=== PATIENT | male | born 1960 | race Caucasian/White ===

== ENCOUNTER 2016-09-09 08:33 | Inpatient (IN) | payer BC ==
[~2016-09-09] VITALS: Ht 180.3 cm; Wt 65.9 kg
[~2016-09-09 08:33] MED LIST: DEXA4TAB PO; LORA-446 PO; OXYC10TA32 PO; OXYC5TAB3 PO; ZOLP-413 PO
[2016-09-09] MEDS ORDERED: SODIUM CHLORIDE 0.9% 1,000ML IVBOLUS ONE ×2 (09:30)
[2016-09-09] MEDS ORDERED: LEVOFLOXACIN/PMX 750MG/150ML 150 ML IVPB ONE (09:30)
[2016-09-09] MEDS ORDERED: MORPHINE SULFATE 4 MG/ML, 1ML IVPush PRN (09:30)
[2016-09-09] MEDS ORDERED: ONDANSETRON 2MG/ML, 2ML IVP ONE (09:30)
[2016-09-09] MEDS ORDERED: SODIUM CHLORIDE FLUSH 10ML SYR IVF ONE (09:30)
[2016-09-09] MEDS ORDERED: MORPHINE SULFATE 4 MG/ML, 1ML ONE (09:42)
[2016-09-09] MEDS ORDERED: ONDANSETRON 2MG/ML, 2ML ONE (09:43)
[2016-09-09] MEDS ORDERED: LEVOFLOXACIN/PMX 750MG/150ML 150 ML ONE (09:43)
[2016-09-09 10:10] LABS: HEMOGLOBIN 8.3 g/dL (13.7-18.0)
[2016-09-09 10:24] LABS: BLOOD UREA NITROGEN 19 mg/dL (7-18)
[2016-09-09 10:28] LABS: IS PT STATUS REG ER OR PRE ER? YES
[2016-09-09] MEDS ORDERED: OMNIPAQUE 350 MG/ML, 100ML BOTTLE ONE (11:47)
[2016-09-09] MEDS ORDERED: SODIUM CHLORIDE 0.9%, 500ML IVBOLUS ONE (13:00)
[2016-09-09 14:04] LABS: ABG COLLECTION SITE RIGHT RADIAL; COLLATERAL CIRCULATION TESTING NORMAL
[2016-09-09] MEDS ORDERED: ONDANSETRON 2MG/ML, 2ML IVP PRN (15:00)
[2016-09-09] MEDS: LEVOFLOXACIN/PMX 750MG/150ML 150 ML IV SCH (15:00)
[2016-09-09] MEDS ORDERED: ACETAMINOPHEN 325 MG TABLET PO PRN (15:00)
[2016-09-09] MEDS: ENOXAPARIN 40 MG/0.4 ML SQ SCH (15:41)
[2016-09-09] MEDS: SODIUM CHLORIDE 0.9% 1,000 ML IV SCH (15:41)
[2016-09-09 15:43] VITALS: BP 102/69
[2016-09-09] MEDS: HYDROcodone/APAP 5/325 TABLET PO PRN (16:55)
[2016-09-09 19:34] VITALS: BP 96/65
[2016-09-09] MEDS ORDERED: DABRAFENIB HOMEMEDPO SCH (21:00)
[2016-09-09] MEDS: DABRAFENIB HOMEMEDPO SCH (21:12)
[2016-09-09] MEDS: ONDANSETRON 4 MG TABLET PO PRN (21:27)
[2016-09-09] MEDS: FAMOTIDINE 20 MG TABLET PO SCH (21:27)
[2016-09-10 01:27] VITALS: BP 124/72
[2016-09-10] MEDS: SODIUM CHLORIDE 0.9% 1,000 ML IV SCH (03:15)
[2016-09-10 03:16] VITALS: BP 102/68
[2016-09-10] MEDS: HYDROcodone/APAP 5/325 TABLET PO PRN ×4 (03:19→17:53)
[2016-09-10] MEDS: LORazepam 1MG TABLET PO PRN ×2 (05:14→21:32)
[2016-09-10 05:57] LABS: ASPARTATE AMINO TRANSFERASE 34 U/L (15-37); BLOOD UREA NITROGEN 14 mg/dL (7-18); HEMOGLOBIN 7.6 g/dL (13.7-18.0)
[2016-09-10 06:40] VITALS: BP 113/80
[2016-09-10] MEDS: FAMOTIDINE 20 MG TABLET PO SCH ×2 (08:27→22:08)
[2016-09-10] MEDS ORDERED: LACTULOSE 10 GM/15 ML UDC PO ONE (09:00)
[2016-09-10] MEDS: LEVOFLOXACIN/PMX 750MG/150ML 150 ML IV SCH (09:53)
[2016-09-10] MEDS ORDERED: ALBUTEROL SULFATE 2.5 MG/3 ML ONE (09:59)
[2016-09-10] MEDS: ALBUTEROL SULFATE 2.5 MG/3 ML NPPB SCH ×4 (10:04→22:00)
[2016-09-10] MEDS: MORPHINE SULFATE 4 MG/ML, 1ML IVPush PRN ×2 (10:54→23:44)
[2016-09-10] MEDS: ONDANSETRON 4 MG TABLET PO PRN (11:12)
[2016-09-10] MEDS: TRAMETINIB HOMEMEDPO SCH (11:38)
[2016-09-10] MEDS: DABRAFENIB HOMEMEDPO SCH ×2 (11:39→21:12)
[2016-09-10 13:39] VITALS: BP 99/67
[2016-09-10 15:37] VITALS: BP 95/69
[2016-09-10] MEDS: ENOXAPARIN 40 MG/0.4 ML SQ SCH (17:53)
[2016-09-10 18:59] VITALS: BP 98/62
[2016-09-11 02:30] VITALS: BP 124/73
[2016-09-11] MEDS: LORazepam 1MG TABLET PO PRN ×2 (04:11→17:36)
[2016-09-11 05:16] LABS: BLOOD UREA NITROGEN 10 mg/dL (7-18)
[2016-09-11 05:47] LABS: HEMOGLOBIN 7.4 g/dL (13.7-18.0)
[2016-09-11 06:25] LABS: DIFF TOTAL CELLS COUNTED 100 CELL DIFF
[2016-09-11 06:27] LABS: POLYCHROMASIA 1+; VERIFY COUNTS? YES
[2016-09-11 06:28] LABS: ANISOCYTOSIS 1+; HYPOCHROMIA 1+
[2016-09-11 06:33] LABS: SPHEROCYTES 1+
[2016-09-11] MEDS: ALBUTEROL SULFATE 2.5 MG/3 ML NPPB SCH ×5 (07:30→22:30)
[2016-09-11 08:05] VITALS: BP 111/71
[2016-09-11] MEDS: FAMOTIDINE 20 MG TABLET PO SCH ×2 (08:56→20:15)
[2016-09-11] MEDS: MORPHINE SULFATE 4 MG/ML, 1ML IVPush PRN (08:56)
[2016-09-11] MEDS: TRAMETINIB HOMEMEDPO SCH (09:00)
[2016-09-11] MEDS: DABRAFENIB HOMEMEDPO SCH ×2 (09:02→21:12)
[2016-09-11] MEDS: HYDROcodone/APAP 5/325 TABLET PO PRN ×2 (10:33→20:15)
[2016-09-11] MEDS: LEVOFLOXACIN/PMX 750MG/150ML 150 ML IV SCH (10:37)
[2016-09-11] MEDS ORDERED: BISACODYL 10 MG SUPP PR PRN (15:00)
[2016-09-11 15:03] VITALS: BP 109/67
[2016-09-11] MEDS: POLYETHYLENE GLYCOL 17 GM PACKET NG PRN (16:04)
[2016-09-11] MEDS: ENOXAPARIN 40 MG/0.4 ML SQ SCH (16:04)
[2016-09-11 19:58] VITALS: BP 130/78
[2016-09-12] VITALS (10 sets, daily range): BP systolic 108–137; BP diastolic 70–82
[2016-09-12] MEDS: HYDROcodone/APAP 5/325 TABLET PO PRN ×4 (00:15→18:42)
[2016-09-12] MEDS: LORazepam 1MG TABLET PO PRN ×3 (04:24→20:52)
[2016-09-12] MEDS: MORPHINE SULFATE 4 MG/ML, 1ML IVPush PRN (05:09)
[2016-09-12 06:08] LABS: HEMOGLOBIN 7.3 g/dL (13.7-18.0)
[2016-09-12 06:30] LABS: DIFF TOTAL CELLS COUNTED 100 CELL DIFF
[2016-09-12 06:33] LABS: ANISOCYTOSIS 1+; POLYCHROMASIA 1+; VERIFY COUNTS? YES
[2016-09-12] MEDS: ALBUTEROL SULFATE 2.5 MG/3 ML NPPB SCH ×5 (06:40→23:00)
[2016-09-12] MEDS: POLYETHYLENE GLYCOL 17 GM PACKET NG PRN (09:51)
[2016-09-12] MEDS: FAMOTIDINE 20 MG TABLET PO SCH ×2 (09:51→21:17)
[2016-09-12] MEDS: LEVOFLOXACIN/PMX 750MG/150ML 150 ML IV SCH (09:53)
[2016-09-12] MEDS: DABRAFENIB HOMEMEDPO SCH ×2 (10:00→21:12)
[2016-09-12] MEDS: TRAMETINIB HOMEMEDPO SCH (10:03)
[2016-09-12] MEDS: ENOXAPARIN 40 MG/0.4 ML SQ SCH (14:35)
[2016-09-13] MEDS: MORPHINE SULFATE 4 MG/ML, 1ML IVPush PRN ×2 (00:50→04:15)
[2016-09-13 02:32] VITALS: BP_SYST 125; BP_SYST 175; BP_DIAS 76; BP_DIAS 79
[2016-09-13 04:28] LABS: HEMOGLOBIN 9.6 g/dL (13.7-18.0)
[2016-09-13] MEDS: ALBUTEROL SULFATE 2.5 MG/3 ML NPPB SCH ×5 (06:00→23:25)
[2016-09-13 07:37] VITALS: BP 122/81
[2016-09-13] MEDS: HYDROcodone/APAP 5/325 TABLET PO PRN ×2 (08:57→14:14)
[2016-09-13] MEDS: FAMOTIDINE 20 MG TABLET PO SCH ×2 (08:57→21:47)
[2016-09-13] MEDS: DABRAFENIB HOMEMEDPO SCH ×2 (09:00→21:12)
[2016-09-13] MEDS: TRAMETINIB HOMEMEDPO SCH (09:00)
[2016-09-13] MEDS: LEVOFLOXACIN/PMX 750MG/150ML 150 ML IV SCH (11:08)
[2016-09-13 14:00] VITALS: BP 131/82
[2016-09-13] MEDS: LORazepam 1MG TABLET PO PRN ×2 (14:14→21:47)
[2016-09-13] MEDS ORDERED: GADOBUTROL 7.5 MMOL/7.5 ML PFS ONE (14:57)
[2016-09-13] MEDS: ENOXAPARIN 40 MG/0.4 ML SQ SCH (16:07)
[2016-09-13] MEDS: ASPIRIN 81 MG TABLET EC PO SCH (17:25)
[2016-09-13 20:52] VITALS: BP 115/74
[2016-09-13] MEDS: TEMAZEPAM 15 MG CAPSULE PO PRN (23:49)
[2016-09-14 02:11] VITALS: BP 136/81
[2016-09-14] MEDS: ASPIRIN 81 MG TABLET EC PO SCH (05:21)
[2016-09-14 06:57] VITALS: BP 123/78
[2016-09-14] MEDS: ALBUTEROL SULFATE 2.5 MG/3 ML NPPB SCH ×5 (08:00→22:45)
[2016-09-14] MEDS: DABRAFENIB HOMEMEDPO SCH ×2 (09:12→21:12)
[2016-09-14] MEDS: FAMOTIDINE 20 MG TABLET PO SCH ×2 (11:37→21:53)
[2016-09-14] MEDS: TRAMETINIB HOMEMEDPO SCH (11:38)
[2016-09-14] MEDS: LEVOFLOXACIN/PMX 750MG/150ML 150 ML IV SCH (11:52)
[2016-09-14 12:53] VITALS: BP 129/84
[2016-09-14] MEDS: ENOXAPARIN 40 MG/0.4 ML SQ SCH (16:51)
[2016-09-14 19:19] VITALS: BP 125/76
[2016-09-14] MEDS: SIMVASTATIN 40 MG TABLET PO SCH (21:53)
[2016-09-14] MEDS: TEMAZEPAM 15 MG CAPSULE PO PRN (21:59)
[2016-09-15 01:19] VITALS: BP 125/75
[2016-09-15 05:30] LABS: BLOOD UREA NITROGEN 14 mg/dL (7-18)
[2016-09-15 05:31] LABS: ASPARTATE AMINO TRANSFERASE 34 U/L (15-37)
[2016-09-15] MEDS: ASPIRIN 81 MG TABLET EC PO SCH (05:45)
[2016-09-15 06:46] VITALS: BP 115/72
[2016-09-15] MEDS: ALBUTEROL SULFATE 2.5 MG/3 ML NPPB SCH ×4 (07:40→20:54)
[2016-09-15] MEDS: TRAMETINIB HOMEMEDPO SCH (09:00)
[2016-09-15] MEDS: DABRAFENIB HOMEMEDPO SCH ×2 (09:12→21:12)
[2016-09-15] MEDS: FAMOTIDINE 20 MG TABLET PO SCH ×2 (11:09→20:33)
[2016-09-15] MEDS: LEVOFLOXACIN/PMX 750MG/150ML 150 ML IV SCH (11:11)
[2016-09-15 13:58] VITALS: BP 106/66
[2016-09-15] MEDS: ENOXAPARIN 40 MG/0.4 ML SQ SCH (16:12)
[2016-09-15] MEDS: SIMVASTATIN 40 MG TABLET PO SCH (20:32)
[2016-09-15 20:58] VITALS: BP 105/66
[2016-09-16 04:32] VITALS: BP 105/70
[2016-09-16] MEDS: ASPIRIN 81 MG TABLET EC PO SCH (05:36)
[2016-09-16] MEDS: ALBUTEROL SULFATE 2.5 MG/3 ML NPPB SCH ×4 (06:51→20:00)
[2016-09-16 07:22] VITALS: BP 104/66
[2016-09-16] MEDS: FAMOTIDINE 20 MG TABLET PO SCH ×2 (08:24→21:37)
[2016-09-16] MEDS: DABRAFENIB HOMEMEDPO SCH ×2 (08:27→21:12)
[2016-09-16] MEDS: TRAMETINIB HOMEMEDPO SCH (08:27)
[2016-09-16] MEDS ORDERED: LEVOFLOXACIN 750 MG TABLET PO SCH (09:00)
[2016-09-16 14:01] VITALS: BP 110/72
[2016-09-16 15:49] VITALS: BP 122/79
[2016-09-16] MEDS: ENOXAPARIN 40 MG/0.4 ML SQ SCH (15:59)
[2016-09-16 19:20] VITALS: BP 107/71
[2016-09-16] MEDS: SIMVASTATIN 40 MG TABLET PO SCH (21:37)
[2016-09-17] VITALS (7 sets, daily range): BP systolic 97–148; BP diastolic 60–80
[2016-09-17] MEDS: ASPIRIN 81 MG TABLET EC PO SCH (06:28)
[2016-09-17] MEDS: ALBUTEROL SULFATE 2.5 MG/3 ML NPPB SCH ×2 (07:10→11:00)
[2016-09-17] MEDS: FAMOTIDINE 20 MG TABLET PO SCH ×2 (10:09→21:16)
[2016-09-17] MEDS: POLYETHYLENE GLYCOL 17 GM PACKET NG PRN (10:11)
[2016-09-17] MEDS: DABRAFENIB HOMEMEDPO SCH ×2 (10:57→21:11)
[2016-09-17] MEDS: TRAMETINIB HOMEMEDPO SCH (10:57)
[2016-09-17] MEDS: ENOXAPARIN 40 MG/0.4 ML SQ SCH (16:08)
[2016-09-17] MEDS: LEVOFLOXACIN 750 MG TABLET PO SCH (16:09)
[2016-09-17] MEDS: SIMVASTATIN 40 MG TABLET PO SCH (21:00)
[2016-09-18 03:15] VITALS: BP 125/80
[2016-09-18] MEDS ORDERED: ALBUTEROL SULFATE 2.5 MG/3 ML NPPB PRN (07:00)
[2016-09-18] MEDS ORDERED: MORP15TA39 PO (08:04)
[2016-09-18] MEDS ORDERED: LEVO750T26 PO (08:04)
[2016-09-18 08:40] VITALS: BP 104/65
[2016-09-18] MEDS: LEVOFLOXACIN 750 MG TABLET PO SCH (11:05)
[2016-09-18] MEDS: TRAMETINIB HOMEMEDPO SCH (11:05)
[2016-09-18] MEDS: ASPIRIN 81 MG TABLET EC PO SCH (11:05)
[2016-09-18] MEDS: FAMOTIDINE 20 MG TABLET PO SCH (11:05)
[2016-09-18] MEDS: DABRAFENIB HOMEMEDPO SCH (11:07)
[2016-09-18] MEDS ORDERED: ASPI-621 PO (11:20)
[2016-09-18] MEDS ORDERED: SIMV40TA3 PO (11:20)
== END 2016-09-18 12:27 | disposition home or self-care (01) | DRG 871 ==
LOC: ED 10:28 → EDIP 12:17 → 5SO 15:20 → 3NW 09-10 15:26 → 5SO 09-16 15:37 → 3NW 09-17 19:09
PROVIDERS: ADMIT Internal Medicine; ATTEND Internal Medicine
PROC: 30233N1 Transfusion of Nonautologous Red Blood Cells into Peripheral Vein, Percutaneous Approach (ICD-10-PCS; principal; 2016-09-12)
DX: A41.9 Sepsis, unspecified organism (principal); J96.01 Acute respiratory failure with hypoxia; J18.9 Pneumonia, unspecified organism; E43 Unspecified severe protein-calorie malnutrition; R65.21 Severe sepsis with septic shock; I63.40 Cerebral infarction due to embolism of unspecified cerebral artery; E87.1 Hypo-osmolality and hyponatremia; C79.51 Secondary malignant neoplasm of bone; C78.7 Secondary malignant neoplasm of liver and intrahepatic bile duct; C78.00 Secondary malignant neoplasm of unspecified lung; I87.1 Compression of vein; Q21.1 Atrial septal defect; C43.9 Malignant melanoma of skin, unspecified; F17.210 Nicotine dependence, cigarettes, uncomplicated; D63.0 Anemia in neoplastic disease; E86.0 Dehydration; G89.29 Other chronic pain; K59.00 Constipation, unspecified; Z92.3 Personal history of irradiation; Z85.820 Personal history of malignant melanoma of skin; Z80.1 Family history of malignant neoplasm of trachea, bronchus and lung; Z82.0 Family history of epilepsy and other diseases of the nervous system; Z79.899 Other long term (current) drug therapy; Z68.20 Body mass index [BMI] 20.0-20.9, adult
CPT/HCPCS: 36415; 36600; 70553; 71010; 71275; 74177; 80048; 80053; 80061; 82040; 82803; 83605; 83615; 83735; 83880; 84145; 84484; 84550; 85014; 85018; 85025; 86850; 86900; 86923; 87040; 93005; 93306; 93880; 94640; 96361; 96365; 96375; A9585; J1650; J1956; J2405; J7613; Q0162; Q9967; 92523-GN; J7030; J7040; P9016

== ENCOUNTER → 2016-10-27 | Outpatient (CLI) | payer BC ==
[~2016-10-27] MED LIST changes: +ASPI-621 PO; +GADOBUTROL 7.5 MMOL/7.5 ML VIAL ONE; +LEVO750T26 PO; +MORP15TA39 PO; +OMNIPAQUE 350 MG/ML, 150 ML BOTTLE ONE; +SIMV40TA3 PO
== END | disposition home or self-care (01) ==
LOC: CFH 13:26
PROVIDERS: ATTEND Specialist
DX: C43.9 Malignant melanoma of skin, unspecified (principal); M50.221 Other cervical disc displacement at C4-C5 level; M50.222 Other cervical disc displacement at C5-C6 level; M50.223 Other cervical disc displacement at C6-C7 level; M47.892 Other spondylosis, cervical region; M48.52XA Collapsed vertebra, not elsewhere classified, cervical region, initial encounter for fracture; C79.51 Secondary malignant neoplasm of bone; C78.7 Secondary malignant neoplasm of liver and intrahepatic bile duct; R59.1 Generalized enlarged lymph nodes; R91.8 Other nonspecific abnormal finding of lung field
CPT/HCPCS: 70491; 71260; 72156; A9585; Q9967

== ENCOUNTER → 2016-12-06 | Outpatient (CLI) | payer BC ==
[~2016-12-06] MED LIST changes: -GADOBUTROL 7.5 MMOL/7.5 ML VIAL ONE; -OMNIPAQUE 350 MG/ML, 150 ML BOTTLE ONE
== END | disposition home or self-care (01) ==
LOC: ROC 12:38
PROVIDERS: ATTEND Radiology Radiation Oncology
DX: Z08 Encounter for follow-up examination after completed treatment for malignant neoplasm (principal); C79.51 Secondary malignant neoplasm of bone; C78.7 Secondary malignant neoplasm of liver and intrahepatic bile duct; C78.1 Secondary malignant neoplasm of mediastinum; C43.4 Malignant melanoma of scalp and neck
CPT/HCPCS: 99212; G0463

== ENCOUNTER → 2017-01-13 | Outpatient (CLI) | payer BC ==
[~2017-01-13] MED LIST changes: +MORP-52 PO; -MORP15TA39 PO
== END | disposition home or self-care (01) ==
LOC: ROC 13:17
PROVIDERS: ATTEND Radiology Radiation Oncology
DX: C79.51 Secondary malignant neoplasm of bone (principal); C78.7 Secondary malignant neoplasm of liver and intrahepatic bile duct; C78.1 Secondary malignant neoplasm of mediastinum
CPT/HCPCS: 99212; G0463

== ENCOUNTER → 2017-02-11 | Outpatient (CLI) | payer BC ==
[~2017-02-11] MED LIST changes: +OMNIPAQUE 350 MG/ML, 100ML BOTTLE ONE; -OXYC10TA32 PO; +OXYC10TA47 PO
== END | disposition home or self-care (01) ==
LOC: CFH 11:02
PROVIDERS: ATTEND Specialist
DX: C78.7 Secondary malignant neoplasm of liver and intrahepatic bile duct (principal); C79.51 Secondary malignant neoplasm of bone; C43.9 Malignant melanoma of skin, unspecified; R91.8 Other nonspecific abnormal finding of lung field
CPT/HCPCS: 71260; 74177; Q9967

== ENCOUNTER → 2017-02-11 | Outpatient (CLI) | payer BC ==
[~2017-02-11] MED LIST changes: -OMNIPAQUE 350 MG/ML, 100ML BOTTLE ONE
== END | disposition home or self-care (01) ==
LOC: PETCFH 11:03
PROVIDERS: ATTEND Specialist
DX: C79.51 Secondary malignant neoplasm of bone (principal); C43.9 Malignant melanoma of skin, unspecified
CPT/HCPCS: 78306; A9503

== ENCOUNTER → 2017-02-24 | Outpatient (CLI) | payer BC ==
[~2017-02-24] MED LIST changes: +GADOBUTROL 7.5 MMOL/7.5 ML VIAL ONE
== END | disposition home or self-care (01) ==
LOC: CFH 12:19
PROVIDERS: ATTEND Specialist
DX: C43.9 Malignant melanoma of skin, unspecified (principal); G93.9 Disorder of brain, unspecified
CPT/HCPCS: 70553; 82565; A9585

== ENCOUNTER 2017-03-25 13:48 | Emergency (ER) | payer BC ==
[~2017-03-25] VITALS: Ht 180.3 cm; Wt 66.4 kg
[~2017-03-25 13:48] MED LIST changes: +DEXA1TAB5 PO; -GADOBUTROL 7.5 MMOL/7.5 ML VIAL ONE; +ONDA4TAB13 SL; +POLY17PO5 PO
[2017-03-25 13:59] VITALS: BP 107/75
== END 2017-03-25 15:23 | disposition home or self-care (01) ==
LOC: ED 14:37
DX: C79.51 Secondary malignant neoplasm of bone (principal); E87.1 Hypo-osmolality and hyponatremia
CPT/HCPCS: 99283